=== PATIENT | female | born 1950 | race Caucasian/White ===

== ENCOUNTER 2024-07-23 21:38 | Inpatient (IN) | payer MEDICARE ==
[~2024-07-23] VITALS: Ht 165.1 cm; Wt 72.6 kg
[2024-07-23 22:10] LABS: BASOPHILS # (AUTO) 0.1 K/UL (0.0-0.2); BASOPHILS % (AUTO) 0.8 % (0.0-2.0); EOSINOPHILS # (AUTO) 0.1 K/uL (0.0-0.7); EOSINOPHILS % (AUTO) 2.1 % (0.0-7.0); HEMATOCRIT 39.5 % (31.2-41.9); HEMOGLOBIN 13.3 g/dL (10.9-14.3); LYMPHOCYTES # (AUTO) 2.2 K/uL (0.8-4.8); LYMPHOCYTES % (AUTO) 32.2 % (20.5-51.5); MEAN CORPUSCULAR HEMOGLOBIN 28.7 uug (24.7-32.8); MEAN CORPUSCULAR HGB CONC 34 g/dL (32.3-35.6); MEAN CORPUSCULAR VOLUME 85.5 fL (75.5-95.3); MONOCYTES # (AUTO) 0.5 K/uL (0.1-1.30); MONOCYTES % (AUTO) 7.3 % (0.0-11.0); NEUTROPHILS # (AUTO) 3.9 K/uL (1.8-8.9); NEUTROPHILS % (AUTO) 57.6 % (38.5-71.5); PLATELET COUNT (AUTO) 205 K/uL (179-408); RED BLOOD CELL COUNT(AUTO) 4.62 MIL/uL (3.63-4.92); RED CELL DISTRIBUTION WIDTH 14.1 % (12.3-17.7); WHITE BLOOD COUNT (AUTO) 6.8 K/uL (3.8-11.8)
[2024-07-23 22:31] LABS: DIFFERENTIAL COMMENT 1
[2024-07-23 22:42] LABS: CALCIUM 8.7 mg/dL (8.5-10.1); CARBON DIOXIDE 24 mmol/L (21-32); CHLORIDE 104 mmol/L (98-107); GLUCOSE 196 mg/dL (74-106); POTASSIUM 3.5 mmol/L (3.5-5.1); SODIUM SERUM 141 mmol/L (136-145); UREA NITROGEN, BLOOD 19 mg/dL (7-18)
[2024-07-23 22:55] LABS: ALANINE AMINOTRANSFERASE 68 U/L (14-59); ALBUMIN 3.5 g/dL (3.4-5.0); ALKALINE PHOSPHATASE 63 U/L (50-136); ASPARTATE AMINOTRANSFERASE 26 U/L (15-37); BILIRUBIN,TOTAL 0.5 mg/dL (0.2-1.0); NT-PRO BNP 49 pg/mL (0-125); TOTAL PROTEIN, SERUM 6.7 g/dL (6.4-8.2)
[2024-07-23 23:13] LABS: *BILIRUBIN,URIN NEGATIVE (NEGATIVE); *BLOOD, URINE NEGATIVE (NEGATIVE); *CLARITY,URINE CLEAR (CLEAR); *COLOR,URINE YELLOW (YELLOW); *KETONES,URINE NEGATIVE (NEGATIVE); *UROBILINOGEN,URINE 0.2 E.U./dl (NORMAL); LEUKOCYTE ESTERASE ,URINE TRACE (NEGATIVE); NITRITE, URINE NEGATIVE (NEGATIVE)
[2024-07-23 23:24] LABS: *PROTEIN,URINE 3+ (NEGATIVE); UGLUCOSE 2+ (NEGATIVE)
[2024-07-23 23:27] LABS: BACTERIA,URINE FEW /HPF (NONE SEEN); RBC,URINE NONE SEEN /HPF (0-3); SQUAMOUS EPITHELIAL CELL,UR FEW /HPF (NONE SEEN)
[2024-07-24] MEDS ORDERED: ASPIRIN 325 MG TABLET ONE (01:06)
[2024-07-24] MEDS ORDERED: CLONIDINE HCL 0.1 MG TABLET ONE (01:06)
[2024-07-24] MEDS ORDERED: NITROGLYCERIN OINT 1 GM PACKET TP ONE (01:06)
[2024-07-24] MEDS: ASPIRIN 325 MG TABLET PO ONE (01:13)
[2024-07-24] MEDS: CLONIDINE HCL 0.1 MG TABLET PO ONE (01:13)
[2024-07-24] MEDS: NITROGLYCERIN OINT 1 GM PACKET TP ONE (01:13)
[2024-07-24] MEDS ORDERED: MAGNESIUM HYDROXIDE 30 ML LIQUID UDC PO PRN (03:15)
[2024-07-24] MEDS ORDERED: TEMAZEPAM 15 MG CAPSULE PO PRN (03:15)
[2024-07-24] MEDS ORDERED: NITROGLYCERIN 0.4 MG/TAB BOTTLE SL PRN ×2 (03:15→05:31)
[2024-07-24] MEDS ORDERED: ACETAMINOPHEN 325 MG TABLET PO PRN (03:15)
[2024-07-24] MEDS ORDERED: ONDANSETRON 4 MG/2 ML VIAL IV PRN (03:15)
[2024-07-24] MEDS ORDERED: REMEDY ESSENTIAL ZINC PASTE 113 GM TP PRN (03:15)
[2024-07-24] MEDS ORDERED: CEphaleXIN 500 MG CAPSULE ONE (05:47)
[2024-07-24] MEDS: CEphaleXIN 500 MG CAPSULE PO SCH ×2 (06:02→20:43)
[2024-07-24] MEDS ORDERED: PANTOPRAZOLE SODIUM 40 MG TABLET.DR PO ONE (07:01)
[2024-07-24] MEDS: PANTOPRAZOLE SODIUM 40 MG TABLET.DR PO SCH (07:04)
[2024-07-24] MEDS ORDERED: ASPIRIN 81 MG TAB.CHEW ONE (08:59)
[2024-07-24] MEDS: ASPIRIN 81 MG TAB.CHEW PO SCH (09:00)
[2024-07-24 10:38] LABS: CALCIUM 8.7 mg/dL (8.5-10.1); CARBON DIOXIDE 25 mmol/L (21-32); CHLORIDE 106 mmol/L (98-107); CREATININE 0.9 mg/dL (0.6-1.3); GLUCOSE 113 mg/dL (74-106); POTASSIUM 4.1 mmol/L (3.5-5.1); SODIUM SERUM 141 mmol/L (136-145); UREA NITROGEN, BLOOD 16 mg/dL (7-18)
[2024-07-24 10:43] LABS: ALANINE AMINOTRANSFERASE 67 U/L (14-59); ALBUMIN 3.2 g/dL (3.4-5.0); ALKALINE PHOSPHATASE 55 U/L (50-136); ASPARTATE AMINOTRANSFERASE 27 U/L (15-37); BILIRUBIN,TOTAL 0.8 mg/dL (0.2-1.0); TOTAL PROTEIN, SERUM 6.4 g/dL (6.4-8.2)
[2024-07-24] MEDS ORDERED: MORPHINE SULFATE 2 MG/1 ML DISP.SYRIN ONE (10:59)
[2024-07-24] MEDS: MORPHINE SULFATE 2 MG/1 ML DISP.SYRIN IV PRN (11:00)
[2024-07-24] MEDS ORDERED: DIAZEPAM 5 MG TABLET ONE (14:27)
[2024-07-24] MEDS: DIAZEPAM 5 MG TABLET PO ONE (14:27)
[2024-07-24] MEDS: FLUTICASONE PROP NASAL SPRAY 16 GM BOTTLE NS SCH (17:44)
[2024-07-24 17:48] VITALS: BP 169/70; O2SAT 95
[2024-07-24] MEDS: LOSARTAN POTASSIUM 50 MG TABLET PO SCH (18:41)
[2024-07-24 19:00] VITALS: BP 140/61; TEMP 98; O2SAT 98
[2024-07-24] MEDS: DIAZEPAM 5 MG TABLET PO SCH (20:43)
[2024-07-25] MEDS: hydrALAZINE HCL 20 MG/1 ML VIAL IV PRN (03:39)
[2024-07-25 04:00] VITALS: BP 134/71; TEMP 97.7; O2SAT 99
[2024-07-25 07:12] LABS: BASOPHILS # (AUTO) 0.1 K/UL (0.0-0.2); BASOPHILS % (AUTO) 1.1 % (0.0-2.0); EOSINOPHILS # (AUTO) 0.2 K/uL (0.0-0.7); EOSINOPHILS % (AUTO) 3.2 % (0.0-7.0); HEMATOCRIT 43.8 % (31.2-41.9); HEMOGLOBIN 14.8 g/dL (10.9-14.3); LYMPHOCYTES # (AUTO) 2.1 K/uL (0.8-4.8); LYMPHOCYTES % (AUTO) 37.5 % (20.5-51.5); MEAN CORPUSCULAR HEMOGLOBIN 28.9 uug (24.7-32.8); MEAN CORPUSCULAR HGB CONC 34 g/dL (32.3-35.6); MEAN CORPUSCULAR VOLUME 85.3 fL (75.5-95.3); MONOCYTES # (AUTO) 0.4 K/uL (0.1-1.30); MONOCYTES % (AUTO) 6.7 % (0.0-11.0); NEUTROPHILS # (AUTO) 2.9 K/uL (1.8-8.9); NEUTROPHILS % (AUTO) 51.5 % (38.5-71.5); PLATELET COUNT (AUTO) 208 K/uL (179-408); RED BLOOD CELL COUNT(AUTO) 5.13 MIL/uL (3.63-4.92); RED CELL DISTRIBUTION WIDTH 14.4 % (12.3-17.7); WHITE BLOOD COUNT (AUTO) 5.7 K/uL (3.8-11.8)
[2024-07-25 07:16] VITALS: BP 162/85; TEMP 97.6; O2SAT 100
[2024-07-25 07:29] LABS: CALCIUM 8.8 mg/dL (8.5-10.1); CARBON DIOXIDE 26 mmol/L (21-32); CHLORIDE 104 mmol/L (98-107); CHOLESTEROL 245 mg/dL (<200); CREATININE 0.8 mg/dL (0.6-1.3); GLUCOSE 106 mg/dL (74-106); HDL CHOLESTEROL 44 mg/dL (40-60); MAGNESIUM 2.3 mg/dL (1.8-2.4); PHOSPHOROUS 3.9 mg/dL (2.5-4.9); POTASSIUM 3.6 mmol/L (3.5-5.1); SODIUM SERUM 141 mmol/L (136-145); TRIGLYCERIDES 228 MG/DL (30-150); UREA NITROGEN, BLOOD 15 mg/dL (7-18)
[2024-07-25 08:00] LABS: DIFFERENTIAL COMMENT 1
[2024-07-25] MEDS: DIAZEPAM 2 MG TABLET PO SCH (08:55)
[2024-07-25 11:29] VITALS: BP 154/66; TEMP 97.9; O2SAT 98
[2024-07-25] MEDS: AMLODIPINE 5 MG TABLET PO SCH (13:14)
[2024-07-25 14:36] LABS: THYROID STIMULATING HORMONE 4.181 mIU/mL (0.358-3.740)
[2024-07-25 15:37] VITALS: BP 150/62; TEMP 98.7; O2SAT 94
[2024-07-25] MEDS: BISACODYL 10 MG SUPP.RECT RC ONE (18:14)
[2024-07-25 19:10] VITALS: BP 170/74; TEMP 98.5; O2SAT 100
[2024-07-25] MEDS: ATORVASTATIN 40 MG TABLET PO SCH (20:14)
[2024-07-25] MEDS: SENNOSIDES 1 TABLET PO SCH (20:24)
[2024-07-26] MEDS: HYDROCODONE/APAP 5-325MG TABLET PO PRN (04:42)
[2024-07-26 04:58] VITALS: BP 149/66; TEMP 98.2; O2SAT 95
[2024-07-26 08:09] VITALS: TEMP 97.7
[2024-07-26 08:53] VITALS: BP 143/64; TEMP 97.7; O2SAT 97
[2024-07-26 11:33] VITALS: BP 143/64; TEMP 97.7; O2SAT 97
[2024-07-26 16:45] VITALS: BP 118/62; TEMP 97.8; O2SAT 96
[2024-07-26 19:00] VITALS: BP 136/72; TEMP 98; O2SAT 98
[2024-07-27 05:07] VITALS: BP 152/69; TEMP 98; O2SAT 97
[2024-07-27] MEDS ORDERED: SENN-175 PO (12:12)
[2024-07-27] MEDS ORDERED: FLUT16SP16 NS (12:12)
[2024-07-27] MEDS ORDERED: AMLO-212 PO (12:12)
[2024-07-27] MEDS ORDERED: DIAZ5TAB4 PO (12:12)
[2024-07-27] MEDS ORDERED: ATOR40TA PO (12:12)
[2024-07-27] MEDS ORDERED: LOSA50TA3 PO (12:12)
[2024-07-27 16:00] VITALS: BP 154/74; TEMP 97.9; O2SAT 94
[2024-07-27 20:00] VITALS: BP 126/75; TEMP 98.6; O2SAT 94
[2024-07-28 04:00] VITALS: BP 115/64; TEMP 97.7; O2SAT 92
[2024-07-28 11:39] VITALS: BP 142/62; TEMP 98; O2SAT 95
[2024-07-28 15:44] VITALS: BP 139/63; TEMP 98.2; O2SAT 95
[2024-07-28 19:40] VITALS: BP 150/65; TEMP 98.2; O2SAT 98
[2024-07-29 04:25] VITALS: BP 141/58; TEMP 98; O2SAT 93
[2024-07-29] MEDS ORDERED: HYDR-894 PO (09:58)
[2024-07-29] MEDS: hydrALAZINE HCL 50 MG TABLET PO SCH (10:00)
[2024-07-29 10:15] VITALS: BP 138/60
[2024-07-29 11:03] VITALS: BP 138/60; TEMP 98.4; O2SAT 94
[2024-07-29 15:08] VITALS: BP 138/50; TEMP 97.7; O2SAT 96
[2024-07-29 19:40] VITALS: BP 139/69; TEMP 97.3; O2SAT 96
[2024-07-30 04:25] VITALS: BP 139/68; TEMP 97.4; O2SAT 95
[2024-07-30] MEDS: ENSURE ENLIVE (VAN) 240 ML LIQUID PO SCH (08:01)
[2024-07-30 11:36] VITALS: BP 99/66; TEMP 97.7; O2SAT 100
== END 2024-07-30 14:10 | disposition home or self-care (01) | DRG 74 ==
LOC: ER 21:38 → TELE3 07-24 03:21 → TRANSITION 07-24 03:23 → TELE3 07-24 15:01 → MEDSURG3 07-25 13:00
PROVIDERS: ADMIT Nurse Practitioner Acute Care; ATTEND Nurse Practitioner Acute Care
DX: G90.89 Other disorders of autonomic nervous system (principal); D68.59 Other primary thrombophilia; Z59.01 Sheltered homelessness; I10 Essential (primary) hypertension; Z91.148 Patient's other noncompliance with medication regimen for other reason; R42 Dizziness and giddiness; F41.9 Anxiety disorder, unspecified; S72.002D Fracture of unspecified part of neck of left femur, subsequent encounter for closed fracture with routine healing; W19.XXXD Unspecified fall, subsequent encounter; Z96.642 Presence of left artificial hip joint; S09.30 Unspecified injury of middle and inner ear; W19.XXXS Unspecified fall, sequela; M79.18 Myalgia, other site; F32.A Depression, unspecified; Z91.199 Patient's noncompliance with other medical treatment and regimen due to unspecified reason; K62.89 Other specified diseases of anus and rectum; Z74.09 Other reduced mobility; R07.89 Other chest pain; Z76.5 Malingerer [conscious simulation]
CPT/HCPCS: 36415; 70450; 71045; 83735; 84100; 84443; 84484; 85025; 87086; 93307; A4606; A4663; C1758; G0378; J0360; J2270; J2405; J3535